=== PATIENT | male | born 1975 | race African-American/Black ===

== ENCOUNTER 2017-04-01 04:58 | Emergency (ER) | payer OTHER ==
--- NOTE | 2017-04-01 05:22 | ER Document Report ---
ED Neck/Back Problem - General Mode of Arrival: Medic Information source: Patient <SHEY VERA - Last Filed: 04/01/17 07:13> <RADHA SALCEDO - Last Filed: 04/01/17 09:20> - General Chief Complaint: Back Pain Stated Complaint: BACK AND LEG PAIN Time Seen by Provider: 04/01/17 05:22 Notes: 42-year-old [employer] duty [employer] with a history of spinal stenosis and chronic back pain since 2007. He has acute exacerbation for 2 days. The pain that has gotten increasingly more constant was on the left side until Tuesday the pain shifted to his right low back and was more intense. It radiated into his right buttocks and into his right lateral and medial thigh. Occasionally it radiates to his foot. He saw medical on Tuesday and they gave him Toradol IM. He started to feel better after taking Celebrex and methocarbamol and ice. Yesterday morning he sat up normally from bed and felt a pain repeat in to his right buttocks with burning that is on fire. His back muscles locked up. He has had difficulty walking due to the pain. He went to the emergency room yesterday and they gave him another shot of Toradol and made him FSIQ. Past medical history is BPH, hives, Achilles tendon stripping, vasectomy, 2 hernia repairs, and oral graft. He had an MRI 3 weeks ago at December which showed the spinal stenosis and possible new disc bulging at L3-4 and 5 although he has not seen the medical provider to go over the results yet. This MRI was done prior to this new pain on the right side. No fever, no IV drug use, no difficulty with urine or bowel movement, no saddle anesthesia. (SHEY VERA) Past Medical History - General Information source: Patient - Social History Smoking Status: Never Smoker Frequency of alcohol use: None Drug Abuse: None Lives with: Spouse/Significant other Family History: Reviewed & Not Pertinent - Medical History Medical History: Negative Musculoskeltal Medical History: Reports Other - Chronic back pain due to spinal stenosis since 2007 <SHEY VERA - Last Filed: 04/01/17 07:13> Review of Systems - Review of Systems Constitutional: No symptoms reported EENT: No symptoms reported Cardiovascular: No symptoms reported Respiratory: No symptoms reported Gastrointestinal: No symptoms reported Genitourinary: No symptoms reported Male Genitourinary: No symptoms reported Musculoskeletal: See HPI Skin: No symptoms reported Hematologic/Lymphatic: No symptoms reported Neurological/Psychological: No symptoms reported <SHEY VERA - Last Filed: 04/01/17 07:13> Physical Exam - Vital signs Interpretation: Normal - General General appearance: Appears well, Alert - HEENT Head: Normocephalic, Atraumatic Eyes: Normal Pupils: PERRL Neck: Supple - Respiratory Respiratory status: No respiratory distress Chest status: Nontender Breath sounds: Normal Chest palpation: Normal - Cardiovascular Rhythm: Regular Heart sounds: Normal auscultation Murmur: No - Abdominal Inspection: Normal Distension: No distension Bowel sounds: Normal Tenderness: Nontender Organomegaly: No organomegaly - Back Back: Normal, Nontender - Extremities General upper extremity: Normal inspection, Nontender, Normal color, Normal ROM , Normal temperature General lower extremity: Normal inspection, Nontender, Normal color, Normal ROM , Normal temperature, Normal weight bearing. No: Jasiel's sign - Neurological Neuro grossly intact: Yes Cognition: Normal Orientation: AAOx4 Fabi Coma Scale Eye Opening: Spontaneous Fabi Coma Scale Verbal: Oriented Fabi Coma Scale Motor: Obeys Commands Fabi Coma Scale Total: 15 Speech: Normal Motor strength normal: LUE, RUE, LLE, RLE Sensory: Normal - Psychological Associated symptoms: Normal affect, Normal mood - Skin Skin Temperature: Warm Skin Moisture: Dry Skin Color: Normal <SHEY VERA - Last Filed: 04/01/17 07:13> <ARDHA SALCEDO - Last Filed: 04/01/17 09:20> - Vital signs Vitals: Temp Pulse Resp BP Pulse Ox 97.7 F 72 18 136/80 H 97 04/01/17 05:07 04/01/17 05:07 04/01/17 05:07 04/01/17 05:07 04/01/17 05:07 - Notes Notes: on all 4ths in the bed (SHEY VERA) Course - Laboratory Result Diagrams: 04/01/17 06:38 04/01/17 06:38 <SHEY VERA - Last Filed: 04/01/17 07:13> - Laboratory Result Diagrams: 04/01/17 06:38 04/01/17 06:38 <RADHA SALCEDO - Last Filed: 04/01/17 09:20> - Re-evaluation Re-evalutation: 04/01/17 07:13 pt finally 0/5. Bilateral patellar and ankle reflexes are 2+. 04/01/17 07:14 care transferred to Radha BARRIOS at the bedside. (SHEY VERA) 04/01/17 09:17 The patient presents with low back pain without signs of spinal cord compression , cauda equina syndrome, infection, aneurysm, or other serious etiology. The patient is neurologically intact. Clinically improved since arrival, able to ambulate to the bathroom and back. Given the extremely low risk of these diagnoses further testing and evaluation for these possibilities does not appear to be indicated at this time. The patient has been instructed to return if the symptoms worsen or change in any way. (RADHA SALCEDO) - Vital Signs Vital signs: Temp Pulse Resp BP Pulse Ox 97.7 F 72 18 149/106 H 94 04/01/17 05:07 04/01/17 05:07 04/01/17 05:07 04/01/17 08:31 04/01/17 08:31 - Laboratory Laboratory results interpreted by me: 04/01/17 04/01/17 06:38 06:38 Hgb 13.2 L RDW 14.2 H Chloride 108 H BUN 22 H Creatine Kinase 512 H Discharge <SHEY VERA - Last Filed: 04/01/17 07:13> <RADHA SALCEDO - Last Filed: 04/01/17 09:20> - Discharge Clinical Impression: Low back pain Qualifiers: Chronicity: chronic Back pain laterality: bilateral Sciatica presence: with sciatica Sciatica laterality: bilateral sciatica Qualified Code(s): M54.42 - Lumbago with sciatica, left side; M54.41 - Lumbago with sciatica, right side; G89.29 - Other chronic pain Sciatica Qualifiers: Laterality: bilateral Qualified Code(s): M54.31 - Sciatica, right side; M54.32 - Sciatica, left side Condition: Good Disposition: HOME, SELF-CARE Additional Instructions: LOW BACK PAIN: Three out of every four people will have an episode of disabling back pain during their lifetime. Most commonly the pain is due to straining of the muscles and ligaments in the low back. Usual treatment includes: (1) Rest on a firm surface. Avoid lying on your stomach. (2) Ice pack the painful area. After a few days, gentle heat may be used intermittently to relax the area, or ice packs can be continued. (3) Medication may be needed -- muscle relaxers and antiinflammatory medicines are commonly used. (4) As the back improves, exercises are prescribed to strengthen the back and abdominal muscles. Your doctor will advise you on the proper care for your back at each stage in your recovery. You may be better in a few days -- or healing may take several weeks. If new symptoms of a "herniated disc" (radiation of pain, numbness, or tingling down the back of the leg or weakness in the leg) occur, you should be re-examined. Further testing may be necessary. PAIN MEDICATION INJECTION: You have received an injection of a pain medication. You should experience significant pain relief within 45 minutes. If this injection was a narcotic -- it will impair your judgement, slow your reaction time and make you sleepy (as well as relieve your pain). Narcotics also can cause nausea. You should not drive, work with machinery, or perform any task requiring mental alertness until all effects of the medication are gone -- six to eight hours. Do not take any alcohol, or sedatives, and do not take any other medication without checking with your physician. MUSCLE RELAXERS: Muscle relaxing medications are usually prescribed for acute muscle spasm or injury to the neck and back. They are often combined with antiinflammatory pain medication for increased relief. You may stop the muscle relaxer when the pain and stiffness have improved. Start the medication again if spasms recur. Muscle relaxers may cause drowsiness, especially with the first dose. Do not operate machinery or drive while under the effects of the medication. Most muscle relaxers last up to 24 hours. Do not combine the medication with alcohol. ICE PACKS: Apply ice packs frequently against the painful area. Many different schedules are recommended, such as "20 minutes on, 20 minutes off" or "one hour ice, two hours rest." If you need to work, you may need to go longer between ice treatments. You should plan to have the area ice packed AT LEAST one fourth of the time. The ice should be applied over the wrap, tape, or splint, or over a layer of cloth -- not directly against the skin. Some ice bags have a built-in cloth and can be put directly on the skin. WARM PACKS: After approximately two days, apply gentle heat (such as a heating pad or hot water bottle) for about 20 to 30 minutes about every two hours -- at least four times daily. Warmth and elevation will help you make a more rapid recovery , and will ease the pain considerably. Do not use HOT heat, and never apply heat for longer than 30 minutes. The continuous heat can invisibly damage skin and muscles -- even when no burn is seen on the surface. Damaged muscles can make you MORE sore. FOLLOW-UP CARE: If you have been referred to a physician for follow-up care, call the physician s office for an appointment as you were instructed or within the next two days. If you experience worsening or a significant change in your symptoms, notify the physician immediately or return to the Emergency Department at any time for re-evaluation. Prescriptions: Cyclobenzaprine HCl [Flexeril 10 mg Tablet] 10 mg PO TIDP PRN #15 tab PRN Reason: Methylprednisolone [Medrol Dosepack (4 mg/Tab) 21 Tab/Dosepak] 4 mg PO ASDIR PRN #21 tab.ds.pk PRN Reason: Forms: Return to Work, Special Work Note
[2017-04-01] MEDS ORDERED: ONDANSETRON HCL INJ/PF 4 MG/2 ML SDV IV ONE (05:37)
[2017-04-01] MEDS ORDERED: HYDROMORPHONE HCL INJ/PF 2 MG/ML AMPULE IV ONE ×3 (05:37→06:34)
[2017-04-01] MEDS ORDERED: HYDROMORPHONE HCL INJ/PF 2 MG/ML AMPULE ONE (05:55)
[2017-04-01] MEDS ORDERED: NORMAL SALINE 1000 ML 2,000 ML IV ONE (06:09)
[2017-04-01] MEDS ORDERED: DIAZEPAM INJ 10 MG/2 ML DISP.SYRIN IV ONE (06:10)
[2017-04-01] MEDS ORDERED: DEXAMETHASONE SOD PHOS INJ 10 MG/1 ML VIAL IV ONE (06:12)
[2017-04-01 06:57] LABS: ABSOLUTE BASOPHILS # (AUTO) 0.1 10^3/uL (0.0-0.2); ABSOLUTE EOSINOPHILS # (AUTO) 0.1 10^3/uL (0.0-0.6); ABSOLUTE LYMPHOCYTES (AUTO) 1.2 10^3/uL (0.5-4.7); ABSOLUTE MONOCYTES (AUTO) 0.8 10^3/uL (0.1-1.4); ABSOLUTE NEUT (AUTO) 4.9 10^3/uL (1.7-8.2); BASOPHILS % (AUTO) 1.2 % (0-2); EOSINOPHILS % (AUTO) 1.5 % (0-6); HEMATOCRIT 39.3 % (37.9-51.0); HEMOGLOBIN 13.2 g/dL (13.5-17.0); HGB HCT DIFFERENCE 0.3; LYMPHOCYTES % (AUTO) 16.8 % (13-45); MEAN CORPUSCULAR HEMOGLOBIN 27.2 pg (27.0-33.4); MEAN CORPUSCULAR HGB CONC 33.5 g/dL (32.0-36.0); MEAN CORPUSCULAR VOLUME 81 fl (80-97); MONOCYTES % (AUTO) 10.7 % (3-13); RED BLOOD COUNT 4.85 10^6/uL (4.35-5.55); RED CELL DISTRIBUTION WIDTH 14.2 % (11.5-14.0); SEGMENTED NEUTROPHILS % (AUTO) 69.8 % (42-78)
[2017-04-01 07:09] LABS: ALANINE AMINOTRANSFERASE 48 U/L (21-72); ALBUMIN 4.2 g/dL (3.5-5.0); ALKALINE PHOSPHATASE 94 U/L (38-126); ANION GAP 12 (5-19); ASPARTATE AMINO TRANSFERASE 26 U/L (17-59); BILIRUBIN,DIRECT 0.3 mg/dL (0.0-0.4); BILIRUBIN,TOTAL 0.5 mg/dL (0.2-1.3); BLOOD UREA NITROGEN 22 mg/dL (7-20); CALCIUM 9.3 mg/dL (8.4-10.2); CARBON DIOXIDE 24 mmol/L (22-30); CHLORIDE 108 mmol/L (98-107); CREATINE KINASE 512 U/L (55-170); CREATININE RESULT 1.13 mg/dL (0.52-1.25); GLUCOSE 102 mg/dL (75-110); MAGNESIUM 2.1 mg/dL (1.6-2.3); POTASSIUM 3.9 mmol/L (3.6-5.0); SODIUM 143.8 mmol/L (137-145); TOTAL PROTEIN 6.8 g/dL (6.3-8.2)
[2017-04-01] MEDS ORDERED: CYCLOBENZAPRINE HCL 10 MG TABLET PO ONE (09:16)
[2017-04-01 09:34] VITALS: BP 167/100
== END 2017-04-01 09:35 | disposition home or self-care (01) ==
LOC: ER 04:58
DX: G89.29 Other chronic pain (principal); M54.41 Lumbago with sciatica, right side; M54.42 Lumbago with sciatica, left side; M48.00 Spinal stenosis, site unspecified
CPT/HCPCS: 96376; 99284; 96374; 96375; 36415; 82550; 83735; 85025; 80053; J3360; J1170; J2405; J7030; J1100

== ENCOUNTER → 2019-12-13 | Outpatient (CLI) | payer OTHER ==
--- NOTE | 2019-12-13 16:36 | RADIOLOGY REPORT (SQ) ---
EXAM DESCRIPTION: VENOUS BILATERAL LOWER IMAGES COMPLETED DATE/TIME: 12/13/2019 4:23 pm REASON FOR STUDY: BLE EDEMA R60.0 LOCALIZED EDEMA M79.606 PAIN IN LEG, UNSPECIFIED COMPARISON: None. TECHNIQUE: Dynamic and static reddy scale and color images acquired of both lower extremity venous sy stems. Selected spectral images acquired with additional compression and augmentation maneuvers. Imag es stored on PACS. LIMITATIONS: None. FINDINGS: RIGHT LEG COMMON FEMORAL AND FEMORAL: Normal phasicity, compression and augmentation. No visualized echogenic m aterial on reddy scale. No defects on color images. POPLITEAL: Normal compression and augmentation. No visualized echogenic material on reddy scale. No de fects on color images. CALF VESSELS: Normal compression and augmentation. No visualized echogenic material on reddy scale. No defects on color image. GSV AND SSV: Normal compression. No visualized echogenic material on reddy scale. No defects on color images. ANY DEEP VENOUS INSUFFICIENCY: Not evaluated. ANY EVIDENCE OF POPLITEAL CYST: No. OTHER: No other significant finding. LEFT LEG COMMON FEMORAL AND FEMORAL: Normal phasicity, compression and augmentation. No visualized echogenic m aterial on reddy scale. No defects on color images. POPLITEAL: Normal compression and augmentation. No visualized echogenic material on reddy scale. No de fects on color images. CALF VESSELS: Normal compression and augmentation. No visualized echogenic material on reddy scale. No defects on color images. GSV AND SSV: Normal compression. No visualized echogenic material on reddy scale. No defects on color images. ANY DEEP VENOUS INSUFFICIENCY: Not evaluated. ANY EVIDENCE POPLITEAL CYST: No. OTHER: No other significant finding. IMPRESSION: NO EVIDENCE DVT OR SVT IN EITHER LEG. TECHNICAL DOCUMENTATION: JOB ID: [id number] 2010 [employer]- All Rights Reserved Reading location - IP/workstation name: [email or web address]
--- NOTE | 2019-12-13 22:55 | XCELERA REPORT ---
[address] [address] Transthoracic Echocardiogram Report Name: ROSE HANKSSR Age: 44 yrs Gender: Male : 1975 Patient Status: Outpatient Patient Location: Study Date: 12/13/2019 02:47 PM Height: 65 in Weight: 290 lb BSA: 2.3 m2 Procedure: A complete two-dimensional transthoracic echocardiogram was performed (2D, M-mode, spectral and color flow Doppler). The study was technically adequate with some images being suboptimal in quality. Reason For Study: BLE EDEMA Ordering Physician: PRADEEP GARCIA Performed By: Vandana Alanis Interpretation Summary LEFT VENTRICLE: LV Systolic function: LVEF is felt to be within normal limits. Best estimate is approximately LVEF is 60 to 65%. LV Diastolic Function: Grade II diastolic dysfunction noted. Wall motion : No definite regional wall motion abnormalities are noted. Left ventricular chamber size : is within normal limit. Left ventricular wall thickness : is increased indicative of Mild LVH. RIGHT VENTRICLE: RV systolic function : is felt to be within normal limit. Right Ventricle Size : is within normal limits. LEFT ATRIUM size : is borderline dilated. RIGHT ATRIUM size : is within normal limit. INTER ATRIAL SEPTUM : No definite atrial septal defect noted however a small PFO could be missed. AORTIC ROOT : seems to be within normal limits. Ascending aorta is not well visualized. INFERIOR VENA CAVA: was not well visualized. VALVES: MITRAL VALVE : Leaflets are mildly thickened. Mobility seems to be within normal limits. Mitral Regurgitation : Trace mitral regurgitation is noted. Mitral Stenosis: No mitral stenosis noted. Mitral valve prolapse : none noted. AORTIC VALVE: seems to be trileaflet with mild thickening but adequate excursion. Aortic stenosis : No aortic stenosis noted. Aortic regurgitation : No aortic incompetence noted. TRICUSPID VALVE : mobility and structures within normal limit. Tricuspid stenosis : no tricuspid stenosis noted. Tricuspid regurgitation : Trace tricuspid regurgitation noted. Estimated RVSP : cannot be accurately commented upon but possibly at upper limit of normal. PULMONARY VALVE : was not well visualized but no significant abnormalities suspected. Pulmonary stenosis : no pulmonary stenosis noted. Pulmonary regurgitation : no significant pulmonary regurgitation noted. MASSES AND THROMBUS : No definite intracardiac thrombus or masses are noted. PERICARDIUM: No pericardial effusion was noted. IMPRESSION : 1. Normal LVEF. 2. Mild LVH noted 3. Grade II [mild] Diastolic Dysfunction noted. 4. No significant valvular stenosis or regurgitation noted. MMode/2D Measurements & Calculations RVDd: 2.7 cm LVIDd: 4.7 cm FS: 32.8 % Ao root diam: 3.2 cm IVSd: 1.5 cm LVIDs: 3.1 cm EDV(Teich): 101.9 ml Ao root area: 8.1 cm2 LVPWd: 1.2 cm ESV(Teich): 39.4 ml LA dimension: 3.5 cm EF(Teich): 61.3 % Doppler Measurements & Calculations MV E max reinier: MV P1/2t max reinier: Ao V2 max: LV V1 max P.1 cm/sec 62.7 cm/sec 128.1 cm/sec 5.0 mmHg MV A max reinier: MV P1/2t: 57.3 msec Ao max PG: LV V1 max: 53.1 cm/sec MVA(P1/2t): 3.8 cm2 6.6 mmHg 111.8 cm/sec MV E/A: 1.1 MV dec slope: 320.9 cm/sec2 MV dec time: 0.22 sec PA V2 max: MV P1/2t-pr_phl: 73.1 cm/sec 57.3 msec PA max P.1 mmHg : PRADEEP GARCIA Shyamal
== END ==
LOC: SP 14:05
PROVIDERS: ATTEND Registered Nurse
DX: R60.0 Localized edema (principal); M79.662 Pain in left lower leg; M79.661 Pain in right lower leg
CPT/HCPCS: 93306; 93970